=== PATIENT | male | born 1975 | race Hispanic/Latino ===

== ENCOUNTER 2022-06-05 06:14 | Emergency (ER) | payer BC, OTHER ==
--- NOTE | 2022-06-05 06:43 | EDPHYS ---
Physician Documentation [facility] Name: Olu Cash Age: 47 yrs Sex: Male : 1975 Arrival Date: 06/05/2022 Time: 06:19 Bed 14 Private MD: ED Physician Ravi Delgado HPI: 06/05 06:37 This 47 yrs old Male presents to ER via Ambulatory with complaints of Finger bs3 Injury. 06:37 47yo m no sig pmh presents with a lesion on his right third digit for 4 weeks. He works bs3 with [employer] and thinks he might have gotten something in. He has been digging at it and his was afraid it would get infected so they came in. Denies new trauma denies anything else bothering him. No numbness, tingling, weakness, no redness. 06:37 per the patient there is a clear discharge that he has expressed that is thick. bs3 Historical: - Allergies: 06:31 No Known Allergies; vc1 - Home Meds: 06:31 None [Active]; vc1 - PMHx: 06:31 None; vc1 - PSHx: 06:31 None; vc1 - Immunization history:: Client reports receiving the 2nd dose of the Covid vaccine. - Social history:: Smoking status: Patient denies any tobacco usage or history of. ROS: 06:37 Constitutional: Negative for fever, chills bs3 06:37 All other systems are negative. Exam: 06:37 Constitutional: This is a well developed, well nourished patient who is awake, alert, bs3 and in no acute distress. Head/Face: Normocephalic, atraumatic. MS/ Extremity: right third digit just proximal to epinicheal fold is a circular palpable lesion approx .25cm in diameter, no discharge no surrounding redness, no fluctuance Vital Signs: 06:29 Weight 104.33 kg; Height 6 ft. 0 in. (182.88 cm); vc1 06:30 BP 122 / 90; Pulse 70; Resp 17; Temp 98.4(O); Pulse Ox 100% on R/A; ke1 06:29 Body Mass Index 31.19 (104.33 kg, 182.88 cm) vc1 MDM: 06:30 Patient medically screened. bs3 06:37 Differential diagnosis: possible Verrucae Vulgaris, possible foreign body, doubt bs3 herpetic arin, not abscess/cellulitis. Data reviewed: vital signs, nurses notes. ED course: considered antibiotics but no signs of infection, even if there was a fb, it has been 4 weeks, and therefore the risks of removal and causing an infection outweight the benefits. Advised hand/derm f/u, advised to do warm soaks and return with any worsening or concerning symptoms. . Administered Medications: No medications were administered Disposition Summary: 06/05/22 06:43 Discharge Ordered Location: Home bs3 Condition: Stable bs3 Diagnosis - Pain in right finger(s) bs3 Followup: bs3 - With: Abhijit Mahoney MD - When: 1 - 2 days - Reason: Recheck today's complaints Discharge Instructions: - Discharge Summary Sheet bs3 - Warts, [id number] bs3 - Heat Therapy bs3 - Hand or Foot Foreign Body, Adult bs3 Forms: - Medication Reconciliation Form bs3 - Thank You Letter bs3 - Antibiotic Education bs3 - Prescription Opioid Use bs3 Signatures: Elizabeth Candelario, RN RN vc1 Ravi Delgado MD MD bs3
--- NOTE | 2022-06-05 06:43 | ER ---
Nurse's Notes [facility] Name: Olu Cash Age: 47 yrs Sex: Male : 1975 Arrival Date: 06/05/2022 Time: 06:19 Bed 14 Private MD: Diagnosis: Pain in right finger(s) Presentation: 06/05 06:29 Chief complaint: Patient states: "About 4 weeks ago I hurt my finger I think I got a vc1 piece of fiber glass in it. I have been getting stuff out but now it hurts so bad I am afraid it is going to get infected.". Coronavirus screen: Vaccine status: Patient reports receiving the 2nd dose of the covid vaccine. Moderna Client denies travel out of the [place] in the last 14 days. At this time, the client does not indicate any symptoms associated with coronavirus-19. Ebola Screen: Patient negative for fever greater than or equal to 101.5 degrees Fahrenheit, and additional compatible Ebola Virus Disease symptoms Patient denies exposure to infectious person. Patient denies travel to an Ebola-affected area in the 21 days before illness onset. No symptoms or risks identified at this time. Risk Assessment: Do you want to hurt yourself or someone else? Patient reports no desire to harm self or others. Onset of symptoms is unknown. 06:29 Method Of Arrival: Ambulatory vc1 06:29 Acuity: JACQUELINE 4 vc1 06:32 Initial Sepsis Screen: Does the patient meet any 2 criteria? No. Patient's initial ke1 sepsis screen is negative. Does the patient have a suspected source of infection? No. Patient's initial sepsis screen is negative. Triage Assessment: 06:31 General: Appears in no apparent distress. uncomfortable, Behavior is calm, cooperative, vc1 appropriate for age. Pain:. 06:32 General: Appears in no apparent distress. Behavior is appropriate for age. ke1 Musculoskeletal: No deficits noted. 06:33 Injury Description: R middle finger small bump. ke1 Historical: - Allergies: 06:31 No Known Allergies; vc1 - Home Meds: 06:31 None [Active]; vc1 - PMHx: 06:31 None; vc1 - PSHx: 06:31 None; vc1 - Immunization history:: Client reports receiving the 2nd dose of the Covid vaccine. - Social history:: Smoking status: Patient denies any tobacco usage or history of. Screenin:30 [facility] ED Fall Risk Assessment (Adult) History of falling in the last 3 months, ke1 including since admission No falls in past 3 months (0 pts) Confusion or Disorientation No (0 pts) Intoxicated or Sedated No (0 pts) Impaired Gait No (0 pts) Mobility Assist Device Used No (0 pt) Altered Elimination No (0 pt) Score/Fall Risk Level 0 - 2 = Low Risk. Abuse screen: Denies threats or abuse. Nutritional screening: No deficits noted. Tuberculosis screening: No symptoms or risk factors identified. Vital Signs: 06:29 Weight 104.33 kg; Height 6 ft. 0 in. (182.88 cm); vc1 06:30 BP 122 / 90; Pulse 70; Resp 17; Temp 98.4(O); Pulse Ox 100% on R/A; ke1 06:29 Body Mass Index 31.19 (104.33 kg, 182.88 cm) vc1 ED Course: 06:19 Patient arrived in ED. ja2 06:26 Estefania Jacobs, MELISSA is Primary Nurse. ke1 06:30 Ravi Delgado MD is Attending Physician. bs3 06:31 Triage completed. vc1 06:33 Arm band placed on right wrist. ke1 06:36 Bed in low position. Call light in reach. ke1 06:43 Abhijit Mahoney MD is Referral Physician. bs3 06:46 No provider procedures requiring assistance completed. Patient did not have IV access ke1 during this emergency room visit. Administered Medications: No medications were administered Medication: 06:33 VIS not applicable for this client. vc1 Outcome: 06:43 Discharge ordered by . bs3 06:46 Discharged to home ambulatory. ke1 06:46 Condition: good 06:46 Discharge instructions given to patient. 06:47 Patient left the ED. ke1 Signatures: Cherelle Sampson ja2 Elizabeth Candelario RN RN vc1 Estefania Jacobs RN RN ke1 Ravi Delgado MD MD bs3 Corrections: (The following items were deleted from the chart) 06:32 06:30 Temp 98.4F Oral; ke1 ke1
[2022-06-05 06:52] VITALS: BP 122/90; TEMP 98.4; O2SAT 100
== END 2022-06-05 06:47 | disposition home or self-care (01) ==
LOC: ER 06:14
DX: M79.644 Pain in right finger(s) (principal)
CPT/HCPCS: 99281